=== PATIENT | female | born 1980 | race Caucasian/White ===

== ENCOUNTER 2016-09-17 15:40 | Emergency (ER) | payer OTHER ==
[2016-09-17 15:40] VITALS: O2SAT 96
[2016-09-17 15:51] VITALS: BP 152/102; PULSE 116; RESP 18; TEMP 99
[2016-09-17 16:19] LABS: BASOPHILS % (AUTO) 1 % (0-3); EOSINOPHILS % (AUTO) 5 % (0-9); HEMATOCRIT 39 % (35-47); MEAN CORPUSCULAR HGB CONC 33.9 gm/dl (32.0-36.0); MEAN CORPUSCULAR VOLUME 87 fL (81-99); NEUTROPHILS % (AUTO) 69.7 % (37-80)
[2016-09-17 16:40] LABS: ALBUMIN 3.2 gm/dl (3.4-5.0); CALCIUM 8.9 mg/dl (8.5-10.1); POTASSIUM 4.4 mMol/L (3.5-5.1); SALICYLATE 4.6 mg/dl (2.8-30.0); THYROID STIMULATING HORMONE 1.911 uIU/ml (0.358-3.740)
[2016-09-17] MEDS ORDERED: DIAZEPAM 5 MG TAB PO ONE (16:51)
[2016-09-17] MEDS ORDERED: DIAZEPAM 5 MG TAB ONE (17:16)
== END 2016-09-17 17:26 | disposition home or self-care (01) ==
LOC: ED 15:40
DX: F43.9 Reaction to severe stress, unspecified (principal); S60.812A Abrasion of left wrist, initial encounter; Z72.89 Other problems related to lifestyle
CPT/HCPCS: 80053; 80307; 84443; 85025; 99282

== ENCOUNTER 2018-03-17 13:20 | Emergency (ER) | payer OTHER ==
[2018-03-17] MEDS ORDERED: HYDROMORPHONE 1 MG/ML SYRINGE IV ONE ×3 (13:54→15:20)
[2018-03-17] MEDS ORDERED: HYDROMORPHONE 1 MG/ML SYRINGE ONE ×3 (13:55→15:21)
[2018-03-17] MEDS: SODIUM CHLORIDE 0.9% FLUSH 10 ML SOL IV PRN ×4 (14:09→16:25)
[2018-03-17] MEDS ORDERED: ONDANSETRON HCL 4 MG/2 ML SOL IV ONE (14:13)
[2018-03-17] MEDS ORDERED: ONDANSETRON HCL 4 MG/2 ML SOL ONE (14:15)
[2018-03-17] MEDS ORDERED: MIDAZOLAM 2 MG/2 ML SOL IV ONE (15:04)
[2018-03-17] MEDS ORDERED: MIDAZOLAM 2 MG/2 ML SOL ONE (15:07)
[2018-03-17 15:40] VITALS: TEMP 98.9
[2018-03-17 16:29] VITALS: RESP 20; O2SAT 100
[2018-03-17 17:45] VITALS: BP 119/61; PULSE 87
== END 2018-03-17 18:05 | disposition home or self-care (01) ==
LOC: ED 13:20
DX: S43.004A Unspecified dislocation of right shoulder joint, initial encounter (principal); W19.XXXA Unspecified fall, initial encounter; Y93.9 Activity, unspecified; Y92.009 Unspecified place in unspecified non-institutional (private) residence as the place of occurrence of the external cause
CPT/HCPCS: 23650; 70450; 73030; 96374; 96375; 99285; J2250; J2405; J1170

== ENCOUNTER 2018-05-06 22:57 | Observation (INO) | payer OTHER ==
[2018-05-06] MEDS ORDERED: ONDANSETRON HCL 4 MG/2 ML SOL IV ONE (23:21)
[2018-05-06] MEDS ORDERED: ONDANSETRON HCL 4 MG/2 ML SOL ONE (23:24)
[2018-05-06 23:43] LABS: BASOPHILS % (AUTO) 1 % (0-3); EOSINOPHILS % (AUTO) 2 % (0-9); HEMATOCRIT 38 % (35-47); HEMOGLOBIN 12.4 gm/dl (12.0-15.5); LYMPHOCYTES % (AUTO) 24.6 % (10-50); MEAN CORPUSCULAR HGB CONC 32.2 gm/dl (32.0-36.0); MEAN CORPUSCULAR VOLUME 90 fL (81-99); MONOCYTES % (AUTO) 9.5 % (0-12); NEUTROPHILS % (AUTO) 62.9 % (37-80)
[2018-05-06 23:56] LABS: BILIRUBIN,TOTAL 0.5 mg/dl (0.2-1.0); CALCIUM 8.4 mg/dl (8.5-10.1); CARBON DIOXIDE 25.3 mEq/L (21-32); CREATININE 1.04 mg/dl (0.60-1.00); TOTAL PROTEIN 7.3 gm/dl (6.4-8.2)
[2018-05-07] MEDS ORDERED: SODIUM CHLORIDE 0.9% 1000ML 1,000 ML IV ONE (00:22)
[2018-05-07] MEDS ORDERED: LORAZEPAM 2 MG/ML SOL IV ONE (00:22)
[2018-05-07] MEDS ORDERED: LABETALOL HYDROCHLORIDE 100 MG TAB PO SCH ×2 (00:30→09:00)
[2018-05-07] MEDS ORDERED: LORAZEPAM 2 MG/ML SOL ONE (00:36)
[2018-05-07] MEDS ORDERED: ZOLPIDEM TARTRATE 5 MG TAB PO PRN (00:51)
[2018-05-07] MEDS ORDERED: ALPRAZOLAM 0.25 MG TAB PO PRN (00:51)
[2018-05-07] MEDS ORDERED: RIZATRIPTAN BENZOATE 10 MG BU PRN (00:51)
[2018-05-07] MEDS ORDERED: LORAZEPAM 2 MG/ML SOL IV PRN (01:00)
[2018-05-07] MEDS ORDERED: ACETAMINOPHEN 500 MG 500 MG TAB PO PRN (01:28)
[2018-05-07] MEDS: DILTIAZEM ER 120 MG C24 PO SCH ×2 (01:31→09:14)
[2018-05-07 08:10] VITALS: BP 127/82; PULSE 84; TEMP 97.9; O2SAT 100
[2018-05-07 08:11] VITALS: RESP 16
[2018-05-07 08:18] LABS: APPEARANCE,URINE Clear; BILIRUBIN,URINE NEGATIVE (NEGATIVE); COLOR,URINE Yellow; GLUCOSE, URINE (UA) NEGATIVE (NEGATIVE); KETONES,URINE NEGATIVE (NEGATIVE); LEUKOCYTE ESTERASE ,URINE 1+ (NEGATIVE); NITRATE,URINE NEGATIVE (NEGATIVE); OCCULT BLOOD,URINE 3+ (NEG-TRACE); PH,URINE 6.5
[2018-05-07 08:54] LABS: RBC,URINE NEG (0-3AV/HPF)
[2018-05-07 08:55] LABS: AMPHETAMINES NEGATIVE (NEGATIVE); BACTERIA NEGATIVE (< 1+); BARBITUATES NEGATIVE (NEGATIVE); BENZODIAZEPINES NEGATIVE (NEGATIVE); CANNABINOL(THC) NEGATIVE (NEGATIVE); COCAINE(COC) NEGATIVE (NEGATIVE); CRYSTALS NEGATIVE (0-3 AVE/HPF); EPITHELIAL CELLS 0-5 (SQUAMOUS); METHADONE NEGATIVE (NEGATIVE); METHAMPHETAMINES NEGATIVE (NEGATIVE); OPIATES(OPI) NEGATIVE (NEGATIVE); OXYCODONE(OXY) NEGATIVE (NEGATIVE); PROPOXYPHENE(PPX) NEGATIVE (NEGATIVE); TRICYCLIC ANTIDEPRESSANTS POSITIVE (NEGATIVE); WBC,URINE 0-4 (0-5AV/HPF)
[2018-05-07] MEDS ORDERED: DILTIAZEM ER 120 MG C24 PO SCH (09:00)
[2018-05-07] MEDS ORDERED: LEVETIRACETAM IV SCH ×2 (11:30→11:45)
[2018-05-07] MEDS ORDERED: INFLUENZA VIRUS VACCINE 0.5 ML SUS IM ONE (11:37)
[2018-05-07] MEDS ORDERED: NORTRIPTYLINE HCL 50 MG CAP PO SCH (21:00)
== END 2018-05-07 12:45 | disposition home or self-care (01) ==
LOC: ED 22:57 → ACUTE CARE 05-07 00:33
PROVIDERS: ADMIT Family Medicine; ATTEND Family Medicine
DX: R56.9 Unspecified convulsions (principal); R40.2362 Coma scale, best motor response, obeys commands, at arrival to emergency department; R40.2142 Coma scale, eyes open, spontaneous, at arrival to emergency department; R40.2252 Coma scale, best verbal response, oriented, at arrival to emergency department; S00.93XA Contusion of unspecified part of head, initial encounter
CPT/HCPCS: 36415; 70450; 72125; 80053; 80305; 81001; 85025; 87077; 87088; 87186; 87205; 90686; 96374; 99235; 99284; J2060; J2405; L0130; A9270-GY; G0008; J1953

== ENCOUNTER 2018-10-30 10:26 | Emergency (ER) | payer MEDICAID, OTHER ==
[2018-10-30 10:42] VITALS: RESP 18; TEMP 97.4
[2018-10-30] MEDS ORDERED: ONDANSETRON HCL 4 MG/2 ML SOL IV ONE (10:57)
[2018-10-30] MEDS ORDERED: TRAMADOL HYDROCHLORIDE 50 MG TAB PO ONE (10:58)
[2018-10-30] MEDS ORDERED: SODIUM CHLORIDE 0.9% 1000ML 1,000 ML IV SCH (11:00)
[2018-10-30 11:21] LABS: BASOPHILS % (AUTO) 1 % (0-3); EOSINOPHILS % (AUTO) 2 % (0-9); HEMATOCRIT 40 % (35-47); HEMOGLOBIN 13.1 gm/dl (12.0-15.5); LYMPHOCYTES % (AUTO) 27.1 % (10-50); MEAN CORPUSCULAR HEMOGLOBIN 29.5 pg (27.0-32.0); MEAN CORPUSCULAR HGB CONC 32.6 gm/dl (32.0-36.0); MEAN CORPUSCULAR VOLUME 90 fL (81-99); MONOCYTES % (AUTO) 6.4 % (0-12); NEUTROPHILS % (AUTO) 63.1 % (37-80)
[2018-10-30 11:25] VITALS: PULSE 84
[2018-10-30 11:35] LABS: ALBUMIN 3.3 gm/dl (3.4-5.0); BILIRUBIN,TOTAL 0.6 mg/dl (0.2-1.0); CALCIUM 8.4 mg/dl (8.5-10.1); CARBON DIOXIDE 29.4 mEq/L (21-32); CREATININE 0.87 mg/dl (0.60-1.00); POTASSIUM 4.8 mMol/L (3.5-5.1); TOTAL PROTEIN 7.6 gm/dl (6.4-8.2)
[2018-10-30 11:36] LABS: APPEARANCE,URINE Clear; BILIRUBIN,URINE NEGATIVE (NEGATIVE); COLOR,URINE Yellow; GLUCOSE, URINE (UA) NEGATIVE (NEGATIVE); KETONES,URINE NEGATIVE (NEGATIVE); LEUKOCYTE ESTERASE ,URINE NEGATIVE (NEGATIVE); NITRATE,URINE NEGATIVE (NEGATIVE); OCCULT BLOOD,URINE TRACE INTACT (NEG-TRACE); UROBILINOGEN,URINE 0.2 (0.2-1.0 EU)
[2018-10-30] MEDS ORDERED: ONDANSETRON HCL 4 MG/2 ML SOL ONE (11:40)
[2018-10-30] MEDS ORDERED: TRAMADOL HYDROCHLORIDE 50 MG TAB ONE (11:41)
[2018-10-30 12:11] LABS: BACTERIA TRACE (< 1+); CRYSTALS NEGATIVE (0-3 AVE/HPF); EPITHELIAL CELLS 0-4 (SQUAMOUS); RBC,URINE 0-1 (0-3AV/HPF); WBC,URINE 0-1 (0-5AV/HPF)
[2018-10-30 12:36] VITALS: BP 154/99; O2SAT 99
== END 2018-10-30 12:57 | disposition home or self-care (01) | DRG 392 ==
LOC: ED 10:26
DX: R10.9 Unspecified abdominal pain (principal); F41.9 Anxiety disorder, unspecified
CPT/HCPCS: 36415; 80053; 81001; 84703; 85025; 93005; 96365; 96374; 99283; 99284; J2405; A9270-GY

== ENCOUNTER 2018-12-14 15:25 | Emergency (ER) | payer MEDICAID, OTHER ==
[2018-12-14] MEDS ORDERED: SODIUM CHLORIDE 0.9% 1000ML 1,000 ML IV ONE (15:32)
[2018-12-14 15:43] VITALS: TEMP 96.2
[2018-12-14 15:48] LABS: BASOPHILS % (AUTO) 1 % (0-3); EOSINOPHILS % (AUTO) 3 % (0-9); HEMATOCRIT 38 % (35-47); HEMOGLOBIN 11.9 gm/dl (12.0-15.5); LYMPHOCYTES % (AUTO) 24.2 % (10-50); MEAN CORPUSCULAR HEMOGLOBIN 30.1 pg (27.0-32.0); MEAN CORPUSCULAR HGB CONC 31.5 gm/dl (32.0-36.0); MEAN CORPUSCULAR VOLUME 95 fL (81-99); MONOCYTES % (AUTO) 7.7 % (0-12); NEUTROPHILS % (AUTO) 64.4 % (37-80)
[2018-12-14 16:12] LABS: ACETAMINOPHEN 24 ug/ml (10-30); ALBUMIN 3.3 gm/dl (3.4-5.0); ALKALINE PHOSPHATASE 176 IU/L (46-116); ALT 63 IU/L (14-63); AST 154 IU/L (15-37); BILIRUBIN,DIRECT 0.2 mg/dl (0.0-0.2); BILIRUBIN,TOTAL 0.8 mg/dl (0.2-1.0); BLOOD UREA NITROGEN 12 mg/dl (7-18); CHLORIDE 101 mMol/L (98-107); CREATININE 1.02 mg/dl (0.60-1.00); GLUCOSE 100 mg/dl (74-106); SALICYLATE < 2.8 mg/dl (2.8-30.0); THYROID STIMULATING HORMONE 10.821 uIU/ml (0.358-3.740); TOTAL PROTEIN 7.2 gm/dl (6.4-8.2)
[2018-12-14 16:13] LABS: ALCOHOL < 0.003 gm/dl (0.000-0.08); CARBON DIOXIDE 31.4 mEq/L (21-32)
[2018-12-14 16:55] LABS: AMPHETAMINES NEGATIVE (NEGATIVE); BARBITUATES NEGATIVE (NEGATIVE); BENZODIAZEPINES POSITIVE (NEGATIVE); CANNABINOL(THC) NEGATIVE (NEGATIVE); COCAINE(COC) NEGATIVE (NEGATIVE); METHAMPHETAMINES NEGATIVE (NEGATIVE); OPIATES(OPI) POSITIVE (NEGATIVE); OXYCODONE(OXY) POSITIVE (NEGATIVE); PROPOXYPHENE(PPX) NEGATIVE (NEGATIVE)
[2018-12-14 20:14] VITALS: BP 152/105; PULSE 91; RESP 16; O2SAT 96
== END 2018-12-14 20:11 | disposition home or self-care (01) | DRG 897 ==
LOC: ED 15:25
DX: F11.90 Opioid use, unspecified, uncomplicated (principal); R40.4 Transient alteration of awareness
CPT/HCPCS: 36415; 80048; 80076; 80305; 80307; 84443; 85025; 99282; 99284